=== PATIENT | female | born 1995 | race Caucasian/White ===

== ENCOUNTER 2019-03-14 15:49 | Emergency (ER) | payer SELFPAY ==
[~2019-03-14] VITALS: Ht 167.6 cm; Wt 59.0 kg
[2019-03-14] MEDS ORDERED: IBUPROFEN 400MG TABLET PO ONE (16:15)
[2019-03-14] MEDS ORDERED: HYDROCODONE/ACETAMINOPHEN 5/325MG TABLET PO ONE ×2 (16:15→20:15)
[2019-03-14] MEDS ORDERED: KETOROLAC 60MG/2ML VIAL IM STA (16:18)
[2019-03-14] MEDS ORDERED: MORPHINE SULFATE 10 MG/ML CPJ IM ONE (16:30)
[2019-03-14] MEDS ORDERED: KETAMINE HCL 50 MG/ML 10ML IV ONE (17:00)
[2019-03-14] MEDS ORDERED: PROPOFOL 200MG/20ML VIAL IV ONE (17:00)
[2019-03-14] MEDS ORDERED: MORPHINE SULFATE 4 MG/ML CPJ (NOT FOR IM USE) IV ONE (17:30)
[2019-03-14 20:41] VITALS: BP 118/73
== END 2019-03-14 20:41 | disposition home or self-care (01) ==
LOC: EDBD 15:49 → ER 15:49
DX: S52.571A Other intraarticular fracture of lower end of right radius, initial encounter for closed fracture (principal); S52.601A Unspecified fracture of lower end of right ulna, initial encounter for closed fracture; V89.2XXA Person injured in unspecified motor-vehicle accident, traffic, initial encounter; Y93.89 Activity, other specified; Y92.89 Other specified places as the place of occurrence of the external cause; Y99.8 Other external cause status
CPT/HCPCS: 25605; 73100; 96372; 99152; 99153; 99285; J1885; J2270; J2704; J3490

== ENCOUNTER 2021-12-01 12:16 | Emergency (ER) | payer MEDICAID | END 2021-12-01 16:23 | disposition left against medical advice (07) | LOC: ER 13:20 | DX: Z53.21 Procedure and treatment not carried out due to patient leaving prior to being seen by health care provider (principal) ==